=== PATIENT | male | born 1965 | race Two or more races ===

== ENCOUNTER 2023-07-21 16:42 | Emergency (ER) | payer MEDICAID ==
[~2023-07-21] VITALS: Ht 185.4 cm; Wt 121.9 kg
[2023-07-21 16:54] VITALS: O2SAT 98
[2023-07-21] MEDS ORDERED: ONDANSETRON ODT 4 MG TAB PO ONE (21:00)
[2023-07-21] MEDS ORDERED: MORPHINE SULFATE INJ 2 MG/ml SYRG IM ONE (21:00)
[2023-07-21] MEDS ORDERED: HYDR-4902 PO (21:03)
[2023-07-21] MEDS ORDERED: CYCL-611 PO (21:03)
[2023-07-21 21:11] VITALS: BP 164/97; PULSE 98; RESP 18
== END 2023-07-21 20:34 | disposition home or self-care (01) ==
LOC: ER 16:42
DX: S22.32XA Fracture of one rib, left side, initial encounter for closed fracture (principal); S29.012A Strain of muscle and tendon of back wall of thorax, initial encounter; M75.32 Calcific tendinitis of left shoulder; R07.89 Other chest pain; Z79.899 Other long term (current) drug therapy; V29.99XA Rider (driver) (passenger) of other motorcycle injured in unspecified traffic accident, initial encounter; Y93.89 Activity, other specified; Y92.89 Other specified places as the place of occurrence of the external cause; Y99.8 Other external cause status
CPT/HCPCS: 71046; 71101; 96372; 99284; J2270; Q0162

== ENCOUNTER 2023-07-30 17:28 | Emergency (ER) | payer MEDICAID ==
[~2023-07-30] VITALS: Ht 185.4 cm; Wt 127.2 kg
[~2023-07-30 17:28] MED LIST: CYCL-611 PO; HYDR-4902 PO
[2023-07-30 17:40] VITALS: TEMP 97.2
[2023-07-30] MEDS ORDERED: HYDROcodone-ACET 7.5/325MG TAB PO ONE (18:45)
[2023-07-30 19:48] LABS: Basophils # (auto) 0.1 10 ^3/uL (0-0.2); Basophils % (auto) 0.6 % (0.0-2.0); Eosinophils # (auto) 0.5 10 ^3/uL (0-0.8); Eosinophils % (auto) 4.4 % (0.0-7.0); Hematocrit 41.5 % (41.0-53.0); Hemoglobin 14.4 g/dL (13.5-17.5); Mean Corpuscular Hemoglobin 31.3 pg (28.0-32.0); Mean Corpuscular Hgb Conc. 34.6 g/dL (32.0-36.0); Mean Corpuscular Volume 90.5 fL (80.0-100.0); Monocytes # (auto) 0.9 10 ^3/uL (0-1.3); Monocytes % (auto) 7.9 % (0.0-12.0); Neutrophils # (auto) 7.5 10 ^3/uL (1.6-8.6); Neutrophils % (auto) 62.1 % (37.0-80.0); Red Blood Cells 4.59 10^6/uL (4.5-5.90); Red Cell Distribution Width 13.5 % (11.8-14.3)
[2023-07-30 19:59] LABS: Alanine Aminotransferase 26 U/L (7-40); Albumin 4.3 g/dL (3.2-4.8); Alkaline Phosphatase 103 U/L (46-116); Anion Gap 7 (5-15); Aspartate Aminotransferase 17 U/L (13-40); BUN/Creatinine Ratio 23.8 (10.0-20.0); Bilirubin, Total 0.3 mg/dL (0.2-1.0); Blood Urea Nitrogen 19 mg/dL (9-23); Calcium 9.1 mg/dL (8.7-10.4); Carbon Dioxide 27 mmol/L (20-30); Chloride 101 mmol/L (98-107); Glucose 290 mg/dL (74-106); Potassium 4.3 mmol/L (3.5-5.1); Sodium 135 mmol/L (136-145); Total Protein 6.3 g/dL (5.7-8.2)
[2023-07-30] MEDS ORDERED: MORPHINE SULFATE INJ 2 MG/ml SYRG IM ONE (20:30)
[2023-07-30] MEDS ORDERED: KETOROLAC TROMETH 60MG/2ML VIAL IM ONE (20:30)
[2023-07-30] MEDS ORDERED: ONDANSETRON ODT 4 MG TAB PO ONE (20:30)
[2023-07-30] MEDS ORDERED: HYDR-4902 PO ×3 (21:12→21:32)
[2023-07-30] MEDS ORDERED: DOCU-94 PO ×3 (21:12→21:32)
[2023-07-30 21:37] VITALS: BP 156/92; PULSE 92; RESP 16; O2SAT 99
== END 2023-07-30 21:36 | disposition home or self-care (01) ==
LOC: ER 17:28
DX: S22.42XD Multiple fractures of ribs, left side, subsequent encounter for fracture with routine healing (principal); M65.28 Calcific tendinitis, other site; V29.40 Motorcycle driver injured in collision with unspecified motor vehicles in traffic accident
CPT/HCPCS: 36415; 71250; 80053; 84484; 85025; 96372; 99285; J1885; J2270; Q0162